=== PATIENT | male | born 1995 | race Caucasian/White ===

== ENCOUNTER 2020-09-06 09:43 | Emergency (ER) | payer SELFPAY ==
[2020-09-06 10:14] VITALS: BP 114/71; PULSE 97; RESP 18; TEMP 37.2; O2SAT 95; BMI 26.5
[2020-09-06 10:20] VITALS: BP 114/71; PULSE 94; RESP 18; O2SAT 95
--- NOTE | 2020-09-06 10:44 | W.ED.EYEPROB ---
HPI - Eye Problem General: Chief complaint: Eye Problems Stated complaint: EYE ISSUES Time Seen by Provider: 09/06/20 10:04 History of Present Illness: HPI Narrative: Patient has redness to left eye. Was seen in urgent care yesterday and put on ofloxacin drops for pinkeye. Patient's history is as he was weightlifting on felt pain in his eye he rubbed his eye pretty hard then developed redness to the eye. Stayed red to the inner part of the eye and then he vomited yesterday fairly hard and the eye started hurting worse became more red. And he presents today for evaluation. He has had no matting of the eye he has had some clear drainage from the eye. Upper eyelid is also become bruised. chief complaint: eye redness Onset (ago): day(s) (Started during weightlifting session) Onset description: sudden Duration: constant and progressively worsening Location: left eye Eye Symptoms: redness Place: other ([place]) Mechanism: other (Weight lifting) Severity: mild Associated symptoms: Reports no associated symptoms and vomiting (Vomited once yesterday, has changed supplement intake routine); Denies fever(s), headache(s) or nausea Treatments Prior to Arrival: other (Ofloxacin drops prescribed by urgent care) Review of Systems Narrative: No history of high blood pressure Const: Denies: fever(s), chills or body aches Eyes: Reports: eye redness and increased production of tears; Denies: change in vision or blurry vision (He is seeing okay now- the eye was blurry for a little while) ENMT: Denies: throat pain or nasal congestion Card: Denies: chest pain or dyspnea on exertion Resp: Denies: dyspnea, productive cough or non-productive cough GI: Reports: vomiting (Vomited once yesterday, has changed supplement intake routine); Denies: abdominal pain or nausea : Denies: difficulty urinating Musc: Denies: extremity pain Skin/Breast: Denies: rash Neuro: Denies: headache(s) Psych: Denies: anxiety or depression Reji/Lymph: Denies: easy bruising PFS ED PFSH: Social History (Updated 09/05/20 @ 10:05 by Mignon Smallwodo LPN) Smoking and tobacco status: never smoked Physical Exam Const: COMMON NORMALS: no acute distress Eye: COMMON NORMALS: Equal, round and reactive pupils present VISUAL ACUITY: Yes acuity normal VISUAL SANDS: No peripheral vision loss and No central vision loss SCLERA: scleral abnormal Laterality of scleral abnormality: positive left hemorrhage (All about the sclera) PUPIL: Yes Equal, round and reactive pupils present EOM: Yes EOM abnormal Psych: COMMON NORMALS: mental status grossly normal Course Vital Signs: Vital signs: Vital Signs Temperature 99.0 F 09/06/20 10:14 Pulse Rate 94 09/06/20 10:20 Respiratory Rate 18 09/06/20 10:20 Blood Pressure 114/71 09/06/20 10:20 Pulse Oximetry 95 09/06/20 10:20 MDM - Eye Problem MDM Narrative: Medical decision making narrative: Spoke with Dr. Hill in consultation went over patient's history and presenting symptoms Dr. Hill agrees with diagnosis and recommends plan have patient follow-up with him if no significant improvement. Discharge Plan Discharge Patient Disposition: Home Clinical Impression: Retinal flame hemorrhage of left eye Condition: Stable Prescriptions: New prednisolone acetate 1 % drops,suspension 1 drp ophthalmic (eye) BID 5 Days Qty: 5 RF: 0 Discontinued ofloxacin 0.3 % drops 2 drp ophthalmic (eye) BID 7 Days Qty: 5 RF: 0 Discharge Orders: Discharge ED (Routine); Ordered 09/06/20 Ordered By: Emmett Santa Discharge Diet: Usual diet Discharge Activity: Increase activity as tolerated Patient Instructions: Retinal Hemorrhage (ED) Activity Restrictions/Additional Instructions: Follow-up with medical provider as directed. Take medications as prescribed. Return to the ER or your medical provider if condition worsens. Please read and understand discharge instructions. If any questions ask please. Can play cold pack to eye as necessary next 24 hours then warm compresses for the next few days after that. Recommend no weight lifting for next few days. Coding Level of Care Code ED Grinding Room Inspector for Micheline Browne
[2020-09-06 10:55] VITALS: BP 114/71; PULSE 90; RESP 15; TEMP 37.2; O2SAT 96
== END 2020-09-06 10:59 | disposition home or self-care (01) ==
PROVIDERS: Emergency Provider Nurse Practitioner Family
DX: H35.62 Retinal hemorrhage, left eye (principal)
CPT/HCPCS: 99281

== ENCOUNTER 2021-10-05 12:43 | Outpatient (CLI) | payer SELFPAY | END 2021-10-05 12:44 | disposition home or self-care (01) | LOC: ONCMED 12:48 | PROVIDERS: Visit Provider Internal Medicine Medical Oncology | DX: Z53.20 Procedure and treatment not carried out because of patient's decision for unspecified reasons (principal) | CPT/HCPCS: 80053; 85025 ==

== ENCOUNTER 2021-10-13 06:00 | Oncology outpatient (recurring) (ONCR) | payer MEDICAID, SELFPAY ==
[2021-09-30 15:11] LABS: Basophils % 1.6 %; Eosinophils % 1.6 %; Hemoglobin 11.2 g/dL (11.7-16.6); Lymphocytes # 0.4 10^3/uL (0.8-4.8); Lymphocytes % 62.9 %; Mean Corpuscular Hemoglobin 29.5 pg (28.0-34.0); Mean Corpuscular Volume 92.1 fl (80-94); Monocytes % 4.8 %; Neutrophils % 29.1 %; Nucleated Red Blood Cells % 0 %; Red Cell Distribution Width 20.6 % (12.1-15.1)
[2021-09-30 15:31] LABS: Alanine Aminotransferase 21 U/L (0-41); Alkaline Phosphatase 238 IU/L (40-130); Anion Gap 14.2 (5-19); Aspartate Amino Transferase 17 U/L (0-40); Blood Urea Nitrogen 15 mg/dL (6-20); Calcium 9.4 mg/dL (8.5-10.5); Carbon Dioxide 26 mmol/L (22-29); Chloride 101 mmol/L (98-107); Globulin 2.8 g/dL (1.3-4.6); Glomerular Filtration Rate 160.4 mL/min (90-130); Glucose 99 mg/dL (65-115); Osmolality Calculated 285 mOsm/kg (285-295); Potassium 4.2 mmol/L (3.5-5.1); Sodium 137 mmol/L (136-145); Total Bilirubin 2.4 mg/dL (0.15-1.2); Total Protein 6.8 g/dL (6.6-8.7)
[2021-09-30 16:05] LABS: White Blood Count 0.6 10^3/uL (4.0-10.0)
[2021-09-30 16:06] LABS: Neutrophils # 0.18 10^3/uL (1.8-7.7); Platelet Count 26 10^3/cmm (130-400)
[2021-09-30 16:11] LABS: Slide Review Slide Review Perform
== END 2021-10-27 23:59 | disposition home or self-care (01) ==
PROVIDERS: Internal Medicine Hematology & Oncology; Visit Provider Internal Medicine Medical Oncology
DX: Z53.9 Procedure and treatment not carried out, unspecified reason (principal)
CPT/HCPCS: 80053; 85025

== ENCOUNTER 2021-10-27 08:00 | Oncology outpatient (recurring) (ONCR) | payer MEDICAID, SELFPAY ==
--- NOTE | 2021-09-30 15:08 | PC.NURSE ---
Peripheral lab draw to pts L AC. Area cleaned with alcohol x2. 21g needle used. Labs obtained as ordered. Pt has OV this afternoon with Dr. Urbano. - JASMYNE
[2021-10-02 10:18] LABS: Eosinophils % 1.2 %; Hematocrit 36.7 % (42.0-52.0); Hemoglobin 11.9 g/dL (11.7-16.6); Lymphocytes # 0.5 10^3/uL (0.8-4.8); Lymphocytes % 66.7 %; Mean Corpuscular HGB Conc 32.4 g/dL (30.0-36.0); Mean Corpuscular Hemoglobin 29.8 pg (28.0-34.0); Monocytes # 0.1 10^3/uL (0.2-0.9); Monocytes % 6.2 %; Neutrophils % 25.9 %; Nucleated Red Blood Cells % 2.5 %; Platelet Count 49 10^3/cmm (130-400); Red Blood Count 3.99 10^6/uL (4.1-5.3)
[2021-10-02 10:44] LABS: Alanine Aminotransferase 29 U/L (0-41); Albumin Level 3.9 g/dL (3.5-5.2); Alkaline Phosphatase 263 IU/L (40-130); Anion Gap 16.2 (5-19); Aspartate Amino Transferase 22 U/L (0-40); Blood Urea Nitrogen 18 mg/dL (6-20); Calcium 9.5 mg/dL (8.5-10.5); Carbon Dioxide 24 mmol/L (22-29); Chloride 98 mmol/L (98-107); Globulin 3.8 g/dL (1.3-4.6); Glomerular Filtration Rate 134.3 mL/min (90-130); Glucose 92 mg/dL (65-115); Osmolality Calculated 280 mOsm/kg (285-295); Potassium 4.2 mmol/L (3.5-5.1); Sodium 134 mmol/L (136-145); Total Bilirubin 1.4 mg/dL (0.15-1.2); Total Protein 7.7 g/dL (6.6-8.7)
[2021-10-02 11:06] LABS: Slide Review Slide Review Perform
[2021-10-02 11:08] LABS: Neutrophils # 0.21 10^3/uL (1.8-7.7); White Blood Count 0.8 10^3/uL (4.0-10.0)
[2021-10-05 13:17] LABS: Basophils % 0.8 %; Eosinophils % 1.5 %; Hematocrit 34.6 % (42.0-52.0); Hemoglobin 11.4 g/dL (11.7-16.6); Lymphocytes # 0.9 10^3/uL (0.8-4.8); Lymphocytes % 68.5 %; Mean Corpuscular HGB Conc 32.9 g/dL (30.0-36.0); Mean Corpuscular Hemoglobin 30.2 pg (28.0-34.0); Mean Corpuscular Volume 91.8 fl (80-94); Mean Platelet Volume 10.7 fL (7.4-10.4); Monocytes % 3.1 %; Neutrophils % 26.1 %; Nucleated Red Blood Cells % 1.5 %; Platelet Count 100 10^3/cmm (130-400); Red Blood Count 3.77 10^6/uL (4.1-5.3); Red Cell Distribution Width 19.9 % (12.1-15.1); White Blood Count 1.3 10^3/uL (4.0-10.0)
[2021-10-05 13:29] LABS: Neutrophils # 0.34 10^3/uL (1.8-7.7)
[2021-10-05 13:32] LABS: Alanine Aminotransferase 32 U/L (0-41); Albumin Level 3.9 g/dL (3.5-5.2); Alkaline Phosphatase 200 IU/L (40-130); Anion Gap 12.5 (5-19); Aspartate Amino Transferase 23 U/L (0-40); Blood Urea Nitrogen 20 mg/dL (6-20); Calcium 9.4 mg/dL (8.5-10.5); Carbon Dioxide 27 mmol/L (22-29); Chloride 100 mmol/L (98-107); Globulin 3.6 g/dL (1.3-4.6); Glomerular Filtration Rate 100.5 mL/min (90-130); Glucose 84 mg/dL (65-115); Osmolality Calculated 282 mOsm/kg (285-295); Potassium 4.5 mmol/L (3.5-5.1); Sodium 135 mmol/L (136-145); Total Bilirubin 1.1 mg/dL (0.15-1.2); Total Protein 7.5 g/dL (6.6-8.7)
[2021-10-13] VITALS (10 sets, daily range): BP systolic 113–144; BP diastolic 56–89; PULSE 75–101; RESP 16; TEMP 36.1–36.9; O2SAT 97–99
[2021-10-13 08:22] LABS: Basophils % 0.6 %; Eosinophils % 1.3 %; Hematocrit 31.6 % (42.0-52.0); Hemoglobin 9.9 g/dL (11.7-16.6); Lymphocytes # 0.9 10^3/uL (0.8-4.8); Lymphocytes % 54.1 %; Mean Corpuscular HGB Conc 31.3 g/dL (30.0-36.0); Mean Corpuscular Hemoglobin 30.2 pg (28.0-34.0); Mean Corpuscular Volume 96.3 fl (80-94); Mean Platelet Volume 10.9 fL (7.4-10.4); Monocytes # 0.2 10^3/uL (0.2-0.9); Monocytes % 12.6 %; Neutrophils % 30.1 %; Nucleated Red Blood Cells % 1.9 %; Platelet Count 211 10^3/cmm (130-400); Red Blood Count 3.28 10^6/uL (4.1-5.3); Red Cell Distribution Width 20.6 % (12.1-15.1); White Blood Count 1.6 10^3/uL (4.0-10.0)
[2021-10-13 08:45] LABS: Neutrophils # 0.48 10^3/uL (1.8-7.7)
[2021-10-13 08:46] LABS: Alanine Aminotransferase 29 U/L (0-41); Albumin Level 4.2 g/dL (3.5-5.2); Alkaline Phosphatase 121 IU/L (40-130); Anion Gap 12.8 (5-19); Aspartate Amino Transferase 16 U/L (0-40); Blood Urea Nitrogen 11 mg/dL (6-20); Calcium 8.5 mg/dL (8.5-10.5); Carbon Dioxide 26 mmol/L (22-29); Chloride 102 mmol/L (98-107); Globulin 2.7 g/dL (1.3-4.6); Glomerular Filtration Rate 134.3 mL/min (90-130); Glucose 120 mg/dL (65-115); Osmolality Calculated 285 mOsm/kg (285-295); Potassium 3.8 mmol/L (3.5-5.1); Sodium 137 mmol/L (136-145); Total Bilirubin 0.4 mg/dL (0.15-1.2); Total Protein 6.9 g/dL (6.6-8.7)
[2021-10-13] MEDS: acetaminophen 325 mg Tablet 650 MG PO (09:06)
[2021-10-13] MEDS: sodium chloride 0.9% 250 ML 75 ML IV (09:06)
[2021-10-13] MEDS: diphenhydrAMINE 50 mg/mL SDV 1mL 25 MG IVP (09:07)
[2021-10-13] MEDS: rituximab-abbs 500 MG, rituximab-abbs 240 MG in sodium chloride 0.9% 500 ML 38.9 MG IV (09:47)
[2021-10-20] VITALS (7 sets, daily range): BP systolic 115–129; BP diastolic 56–77; PULSE 72–89; RESP 16–18; TEMP 36.4–36.8; O2SAT 97–99; BMI 22.6
[2021-10-20] MEDS: acetaminophen 325 mg Tablet 650 MG PO (08:48)
[2021-10-20] MEDS: sodium chloride 0.9% 250 ML 75 ML IV (08:49)
[2021-10-20] MEDS: diphenhydrAMINE 50 mg/mL SDV 1mL 25 MG IVP (08:57)
[2021-10-20] MEDS: rituximab-abbs 500 MG, rituximab-abbs 240 MG in sodium chloride 0.9% 500 ML 191.33 MG IV (09:24)
[2021-10-27 08:35] LABS: Basophils % 1.1 %; Eosinophils % 0.8 %; Hematocrit 35.8 % (42.0-52.0); Hemoglobin 11.4 g/dL (11.7-16.6); Lymphocytes # 0.6 10^3/uL (0.8-4.8); Lymphocytes % 16.8 %; Mean Corpuscular HGB Conc 31.8 g/dL (30.0-36.0); Mean Corpuscular Hemoglobin 31.8 pg (28.0-34.0); Mean Corpuscular Volume 99.7 fl (80-94); Mean Platelet Volume 9.6 fL (7.4-10.4); Monocytes # 0.4 10^3/uL (0.2-0.9); Monocytes % 11.4 %; Neutrophils # 2.52 10^3/uL (1.8-7.7); Neutrophils % 68.5 %; Nucleated Red Blood Cells % 0 %; Platelet Count 219 10^3/cmm (130-400); Red Blood Count 3.59 10^6/uL (4.1-5.3); White Blood Count 3.7 10^3/uL (4.0-10.0)
[2021-10-27 09:07] LABS: Alanine Aminotransferase 37 U/L (0-41); Albumin Level 4.3 g/dL (3.5-5.2); Alkaline Phosphatase 85 IU/L (40-130); Aspartate Amino Transferase 27 U/L (0-40); Blood Urea Nitrogen 12 mg/dL (6-20); Calcium 9.1 mg/dL (8.5-10.5); Carbon Dioxide 26 mmol/L (22-29); Chloride 102 mmol/L (98-107); Globulin 2.7 g/dL (1.3-4.6); Glomerular Filtration Rate 134.3 mL/min (90-130); Glucose 112 mg/dL (65-115); Osmolality Calculated 287 mOsm/kg (285-295); Sodium 138 mmol/L (136-145); Total Bilirubin 0.3 mg/dL (0.15-1.2)
[2021-10-27 09:08] LABS: Anion Gap 14.4 (5-19); Potassium 4.4 mmol/L (3.5-5.1)
[2021-10-27] MEDS: acetaminophen 325 mg Tablet 650 MG PO (09:29)
[2021-10-27] MEDS: sodium chloride 0.9% 250 ML 100 ML IV (09:29)
[2021-10-27] MEDS: diphenhydrAMINE 50 mg/mL SDV 1mL 25 MG IVP (09:32)
[2021-10-27 09:35] VITALS: BP 112/59; PULSE 75; RESP 16; TEMP 36.7; O2SAT 97; BMI 23.1
[2021-10-27] MEDS: rituximab-abbs 500 MG, rituximab-abbs 240 MG in sodium chloride 0.9% 500 ML 191.33 MG IV (09:55)
[2021-10-27 10:30] VITALS: BP 99/53; PULSE 65; RESP 16
[2021-10-27 11:00] VITALS: BP 109/53; PULSE 67; RESP 16
[2021-10-27 11:30] VITALS: BP 111/65; PULSE 75; RESP 16
[2021-10-27 12:40] VITALS: BP 110/63; PULSE 73; RESP 16; TEMP 36.8; O2SAT 97
== END 2021-10-27 23:59 | disposition home or self-care (01) ==
PROVIDERS: Internal Medicine Hematology & Oncology; Visit Provider Internal Medicine Medical Oncology
DX: Z51.12 Encounter for antineoplastic immunotherapy (principal); C91.40 Hairy cell leukemia not having achieved remission; C77.8 Secondary and unspecified malignant neoplasm of lymph nodes of multiple regions; C79.52 Secondary malignant neoplasm of bone marrow; R16.1 Splenomegaly, not elsewhere classified; D70.1 Agranulocytosis secondary to cancer chemotherapy; T45.1X5A Adverse effect of antineoplastic and immunosuppressive drugs, initial encounter; Z79.899 Other long term (current) drug therapy
CPT/HCPCS: 80053; 85025; 96372; 96375; 96413; 96415; 99215; J1200; J2930; J7040; J7050; Q5115

== ENCOUNTER 2021-11-25 08:54 | Oncology outpatient (recurring) (ONCR) | payer MEDICAID, SELFPAY ==
[2021-11-02 09:29] LABS: Eosinophils # 0.1 10^3/uL (0.0-0.8); Eosinophils % 1.3 %; Hemoglobin 11.9 g/dL (11.7-16.6); Lymphocytes # 0.6 10^3/uL (0.8-4.8); Lymphocytes % 16.5 %; Mean Corpuscular HGB Conc 31.3 g/dL (30.0-36.0); Mean Corpuscular Hemoglobin 31.4 pg (28.0-34.0); Mean Corpuscular Volume 100.3 fl (80-94); Mean Platelet Volume 9.6 fL (7.4-10.4); Monocytes # 0.5 10^3/uL (0.2-0.9); Monocytes % 11.6 %; Neutrophils # 2.69 10^3/uL (1.8-7.7); Neutrophils % 69.1 %; Nucleated Red Blood Cells % 0 %; Platelet Count 222 10^3/cmm (130-400); Red Blood Count 3.79 10^6/uL (4.1-5.3); Red Cell Distribution Width 21.2 % (12.1-15.1); White Blood Count 3.9 10^3/uL (4.0-10.0)
[2021-11-02 09:47] LABS: Alanine Aminotransferase 41 U/L (0-41); Albumin Level 4.4 g/dL (3.5-5.2); Alkaline Phosphatase 78 IU/L (40-130); Anion Gap 14.3 (5-19); Aspartate Amino Transferase 21 U/L (0-40); Blood Urea Nitrogen 12 mg/dL (6-20); Carbon Dioxide 24 mmol/L (22-29); Chloride 102 mmol/L (98-107); Globulin 2.5 g/dL (1.3-4.6); Glomerular Filtration Rate 160.4 mL/min (90-130); Glucose 109 mg/dL (65-115); Osmolality Calculated 282 mOsm/kg (285-295); Potassium 4.3 mmol/L (3.5-5.1); Sodium 136 mmol/L (136-145); Total Bilirubin 0.5 mg/dL (0.15-1.2); Total Protein 6.9 g/dL (6.6-8.7)
[2021-11-09 09:35] LABS: Basophils # 0.1 10^3/uL (0.0-0.1); Eosinophils # 0.2 10^3/uL (0.0-0.8); Eosinophils % 3.8 %; Hematocrit 37.4 % (42.0-52.0); Hemoglobin 12.3 g/dL (11.7-16.6); Lymphocytes # 0.8 10^3/uL (0.8-4.8); Lymphocytes % 16.3 %; Mean Corpuscular HGB Conc 32.9 g/dL (30.0-36.0); Mean Corpuscular Hemoglobin 31.5 pg (28.0-34.0); Mean Corpuscular Volume 95.7 fl (80-94); Mean Platelet Volume 10.7 fL (7.4-10.4); Monocytes # 0.6 10^3/uL (0.2-0.9); Neutrophils # 3.35 10^3/uL (1.8-7.7); Neutrophils % 66.7 %; Nucleated Red Blood Cells % 0 %; Platelet Count 208 10^3/cmm (130-400); Red Blood Count 3.91 10^6/uL (4.1-5.3); Red Cell Distribution Width 19.6 % (12.1-15.1)
[2021-11-09 09:54] LABS: Alanine Aminotransferase 26 U/L (0-41); Albumin Level 4.4 g/dL (3.5-5.2); Alkaline Phosphatase 77 IU/L (40-130); Anion Gap 16.3 (5-19); Aspartate Amino Transferase 17 U/L (0-40); Blood Urea Nitrogen 14 mg/dL (6-20); Calcium 9.2 mg/dL (8.5-10.5); Carbon Dioxide 20 mmol/L (22-29); Chloride 105 mmol/L (98-107); Globulin 2.6 g/dL (1.3-4.6); Glomerular Filtration Rate 134.3 mL/min (90-130); Glucose 107 mg/dL (65-115); Osmolality Calculated 285 mOsm/kg (285-295); Potassium 4.3 mmol/L (3.5-5.1); Sodium 137 mmol/L (136-145); Total Bilirubin 0.4 mg/dL (0.15-1.2)
[2021-11-16 09:31] LABS: Basophils % 0.7 %; Eosinophils # 0.2 10^3/uL (0.0-0.8); Eosinophils % 3.7 %; Hematocrit 37.6 % (42.0-52.0); Hemoglobin 12.4 g/dL (11.7-16.6); Lymphocytes # 0.8 10^3/uL (0.8-4.8); Lymphocytes % 14.6 %; Mean Corpuscular Hemoglobin 31.6 pg (28.0-34.0); Mean Corpuscular Volume 95.9 fl (80-94); Mean Platelet Volume 10.8 fL (7.4-10.4); Monocytes # 0.6 10^3/uL (0.2-0.9); Monocytes % 10.7 %; Neutrophils # 3.78 10^3/uL (1.8-7.7); Neutrophils % 70.1 %; Nucleated Red Blood Cells % 0 %; Platelet Count 204 10^3/cmm (130-400); Red Blood Count 3.92 10^6/uL (4.1-5.3); Red Cell Distribution Width 17.9 % (12.1-15.1); White Blood Count 5.4 10^3/uL (4.0-10.0)
[2021-11-16 09:46] LABS: Alanine Aminotransferase 21 U/L (0-41); Albumin Level 4.4 g/dL (3.5-5.2); Alkaline Phosphatase 80 IU/L (40-130); Anion Gap 14.3 (5-19); Aspartate Amino Transferase 15 U/L (0-40); Blood Urea Nitrogen 23 mg/dL (6-20); Calcium 8.9 mg/dL (8.5-10.5); Carbon Dioxide 24 mmol/L (22-29); Chloride 103 mmol/L (98-107); Globulin 2.6 g/dL (1.3-4.6); Glomerular Filtration Rate 115.1 mL/min (90-130); Glucose 115 mg/dL (65-115); Osmolality Calculated 289 mOsm/kg (285-295); Potassium 4.3 mmol/L (3.5-5.1); Sodium 137 mmol/L (136-145); Total Bilirubin 0.4 mg/dL (0.15-1.2)
[2021-11-23 09:40] LABS: Basophils % 0.5 %; Eosinophils # 0.1 10^3/uL (0.0-0.8); Hematocrit 39.7 % (42.0-52.0); Hemoglobin 13.3 g/dL (11.7-16.6); Lymphocytes # 0.5 10^3/uL (0.8-4.8); Lymphocytes % 12.1 %; Mean Corpuscular HGB Conc 33.5 g/dL (30.0-36.0); Mean Corpuscular Volume 95.4 fl (80-94); Mean Platelet Volume 10.1 fL (7.4-10.4); Monocytes # 0.6 10^3/uL (0.2-0.9); Monocytes % 12.8 %; Neutrophils # 3.08 10^3/uL (1.8-7.7); Neutrophils % 71.4 %; Nucleated Red Blood Cells % 0 %; Platelet Count 150 10^3/cmm (130-400); Red Blood Count 4.16 10^6/uL (4.1-5.3); Red Cell Distribution Width 17.2 % (12.1-15.1); White Blood Count 4.3 10^3/uL (4.0-10.0)
[2021-11-23 09:57] LABS: Alanine Aminotransferase 24 U/L (0-41); Albumin Level 4.6 g/dL (3.5-5.2); Alkaline Phosphatase 56 IU/L (40-130); Anion Gap 13.4 (5-19); Aspartate Amino Transferase 18 U/L (0-40); Blood Urea Nitrogen 14 mg/dL (6-20); Calcium 9.1 mg/dL (8.5-10.5); Carbon Dioxide 26 mmol/L (22-29); Chloride 102 mmol/L (98-107); Globulin 2.7 g/dL (1.3-4.6); Glomerular Filtration Rate 134.3 mL/min (90-130); Glucose 112 mg/dL (65-115); Lactate Dehydrogenase 101 U/L (135-225); Osmolality Calculated 285 mOsm/kg (285-295); Potassium 4.4 mmol/L (3.5-5.1); Sodium 137 mmol/L (136-145); Total Bilirubin 0.6 mg/dL (0.15-1.2); Total Protein 7.3 g/dL (6.6-8.7)
== END 2021-11-26 23:59 | disposition home or self-care (01) ==
PROVIDERS: Internal Medicine Hematology & Oncology; Visit Provider Internal Medicine Medical Oncology
DX: C91.41 Hairy cell leukemia, in remission (principal); R16.2 Hepatomegaly with splenomegaly, not elsewhere classified; D64.9 Anemia, unspecified; Z79.899 Other long term (current) drug therapy; Z92.25 Personal history of immunosuppression therapy
CPT/HCPCS: 36415; 80053; 83615; 85025; G0463

== ENCOUNTER 2022-02-25 10:44 | Oncology outpatient (recurring) (ONCR) | payer MEDICAID, SELFPAY ==
[2022-02-25 11:37] LABS: Basophils # 0.1 10^3/uL (0.0-0.1); Basophils % 0.9 %; Eosinophils # 0.3 10^3/uL (0.0-0.8); Hemoglobin 15.3 g/dL (11.7-16.6); Lymphocytes # 0.7 10^3/uL (0.8-4.8); Lymphocytes % 13.3 %; Mean Corpuscular HGB Conc 32.6 g/dL (30.0-36.0); Mean Corpuscular Hemoglobin 29.9 pg (28.0-34.0); Mean Platelet Volume 11.4 fL (7.4-10.4); Monocytes # 0.5 10^3/uL (0.2-0.9); Monocytes % 9.8 %; Neutrophils # 3.84 10^3/uL (1.8-7.7); Neutrophils % 69.8 %; Nucleated Red Blood Cells % 0 %; Platelet Count 250 10^3/cmm (130-400); Red Blood Count 5.11 10^6/uL (4.1-5.3); Red Cell Distribution Width 13.5 % (12.1-15.1); White Blood Count 5.5 10^3/uL (4.0-10.0)
[2022-02-25 11:52] LABS: Alanine Aminotransferase 122 U/L (0-41); Albumin Level 4.5 g/dL (3.5-5.2); Alkaline Phosphatase 80 U/L (40-130); Anion Gap 15.4 (5-19); Aspartate Amino Transferase 83 U/L (0-40); Blood Urea Nitrogen 32 mg/dL (6-20); Calcium 9.9 mg/dL (8.5-10.5); Carbon Dioxide 28 mmol/L (22-29); Chloride 102 mmol/L (98-107); Glucose 90 mg/dL (65-115); Lactate Dehydrogenase 402 U/L (135-225); Osmolality Calculated 296 mOsm/kg (285-295); Potassium 5.4 mmol/L (3.5-5.1); Sodium 140 mmol/L (136-145); Total Bilirubin 0.5 mg/dL (0.15-1.2); Total Protein 7.5 g/dL (6.6-8.7)
== END 2022-02-26 23:59 | disposition home or self-care (01) ==
PROVIDERS: Visit Provider Internal Medicine Medical Oncology
DX: C91.40 Hairy cell leukemia not having achieved remission (principal)
CPT/HCPCS: 36415; 80053; 83615; 85025

== ENCOUNTER 2022-03-04 10:07 | Oncology outpatient (recurring) (ONCR) | payer MEDICAID, SELFPAY ==
[2022-03-04 10:48] LABS: Alanine Aminotransferase 60 U/L (0-41); Albumin Level 5.1 g/dL (3.5-5.2); Alkaline Phosphatase 71 U/L (40-130); Anion Gap 14.3 (5-19); Aspartate Amino Transferase 33 U/L (0-40); Blood Urea Nitrogen 28 mg/dL (6-20); Carbon Dioxide 26 mmol/L (22-29); Chloride 98 mmol/L (98-107); Globulin 2.6 g/dL (1.3-4.6); Glomerular Filtration Rate 100.5 mL/min (90-130); Glucose 99 mg/dL (65-115); Osmolality Calculated 284 mOsm/kg (285-295); Potassium 4.3 mmol/L (3.5-5.1); Sodium 134 mmol/L (136-145); Total Bilirubin 0.5 mg/dL (0.15-1.2); Total Protein 7.7 g/dL (6.6-8.7)
[2022-03-04 11:17] LABS: Hepatitis A Antibody IgM Non-Reactive (Nonreactive); Hepatitis B Core AB, Total Non-Reactive (Nonreactive); Hepatitis B Surface Antigen Non-Reactive (Nonreactive); Hepatitis C Virus Antibody Non-Reactive (Nonreactive)
[2022-03-04 11:21] LABS: Hepatitis B Surface AB < 3.5 (11.5-1000)
== END 2022-03-29 23:59 | disposition home or self-care (01) ==
LOC: ONCMED 10:07
PROVIDERS: Visit Provider Internal Medicine Medical Oncology
DX: C91.40 Hairy cell leukemia not having achieved remission (principal)
CPT/HCPCS: 36415; 80053; 86705; 86706; 86709; 86803; 87340

== ENCOUNTER 2022-06-03 13:14 | Oncology outpatient (recurring) (ONCR) | payer MEDICAID, SELFPAY ==
[2022-06-03 13:50] LABS: Basophils # 0.1 10^3/uL (0.0-0.1); Basophils % 0.9 %; Eosinophils # 0.3 10^3/uL (0.0-0.8); Eosinophils % 3.8 %; Hematocrit 52.3 % (42.0-52.0); Hemoglobin 16.8 g/dL (11.7-16.6); Lymphocytes # 1.1 10^3/uL (0.8-4.8); Lymphocytes % 15.3 %; Mean Corpuscular HGB Conc 32.1 g/dL (30.0-36.0); Mean Corpuscular Hemoglobin 29.3 pg (28.0-34.0); Mean Corpuscular Volume 91.3 fl (80-94); Mean Platelet Volume 11.1 fL (7.4-10.4); Monocytes # 0.8 10^3/uL (0.2-0.9); Monocytes % 10.9 %; Neutrophils # 4.75 10^3/uL (1.8-7.7); Nucleated Red Blood Cells % 0 %; Platelet Count 265 10^3/cmm (130-400); Red Blood Count 5.73 10^6/uL (4.1-5.3); Red Cell Distribution Width 13.1 % (12.1-15.1); White Blood Count 6.9 10^3/uL (4.0-10.0)
[2022-06-03 14:23] LABS: Alanine Aminotransferase 37 U/L (0-41); Albumin Level 5.1 g/dL (3.5-5.2); Alkaline Phosphatase 101 U/L (40-130); Anion Gap 15.2 (5-19); Aspartate Amino Transferase 32 U/L (0-40); Blood Urea Nitrogen 26 mg/dL (6-20); Calcium 9.4 mg/dL (8.5-10.5); Carbon Dioxide 28 mmol/L (22-29); Chloride 97 mmol/L (98-107); Glomerular Filtration Rate 115.1 mL/min (90-130); Glucose 89 mg/dL (65-115); Osmolality Calculated 286 mOsm/kg (285-295); Potassium 4.2 mmol/L (3.5-5.1); Sodium 136 mmol/L (136-145); Total Bilirubin 0.4 mg/dL (0.15-1.2); Total Protein 8.1 g/dL (6.6-8.7)
[2022-06-03 14:33] LABS: Lactate Dehydrogenase 168 U/L (135-225)
== END 2022-06-29 23:59 | disposition home or self-care (01) ==
PROVIDERS: Visit Provider Internal Medicine Medical Oncology
DX: C91.40 Hairy cell leukemia not having achieved remission (principal)
CPT/HCPCS: 36415; 80053; 83615; 85025

== ENCOUNTER 2022-12-02 11:17 | Oncology outpatient (recurring) (ONCR) | payer MEDICAID, SELFPAY ==
[2022-12-02 11:28] VITALS: BP 117/74; PULSE 71; RESP 18; TEMP 36.8; O2SAT 98
[2022-12-02 11:43] LABS: Basophils % 0.6 %; Eosinophils # 0.2 10^3/uL (0.0-0.8); Eosinophils % 2.3 %; Hematocrit 45.4 % (42.0-52.0); Hemoglobin 14.8 g/dL (11.7-16.6); Lymphocytes # 1.1 10^3/uL (0.8-4.8); Lymphocytes % 16.3 %; Mean Corpuscular HGB Conc 32.6 g/dL (30.0-36.0); Mean Corpuscular Hemoglobin 29.7 pg (28.0-34.0); Mean Platelet Volume 10.2 fL (7.4-10.4); Monocytes # 0.5 10^3/uL (0.2-0.9); Monocytes % 7.3 %; Neutrophils # 5.05 10^3/uL (1.8-7.7); Neutrophils % 73.2 %; Nucleated Red Blood Cells % 0 %; Platelet Count 245 10^3/cmm (130-400); Red Blood Count 4.99 10^6/uL (4.1-5.3); Red Cell Distribution Width 13.4 % (12.1-15.1); White Blood Count 6.9 10^3/uL (4.0-10.0)
[2022-12-02 12:00] LABS: Alanine Aminotransferase 43 U/L (0-41); Albumin Level 4.5 g/dL (3.5-5.2); Alkaline Phosphatase 77 U/L (40-130); Anion Gap 15.7 (5-19); Aspartate Amino Transferase 38 U/L (0-40); Blood Urea Nitrogen 24 mg/dL (6-20); Carbon Dioxide 26 mmol/L (22-29); Chloride 102 mmol/L (98-107); Globulin 2.9 g/dL (1.3-4.6); Glomerular Filtration Rate 88.3 mL/min (90-130); Glucose 99 mg/dL (65-115); Lactate Dehydrogenase 141 U/L (135-225); Osmolality Calculated 292 mOsm/kg (285-295); Potassium 4.7 mmol/L (3.5-5.1); Sodium 139 mmol/L (136-145); Total Bilirubin 0.3 mg/dL (0.15-1.2); Total Protein 7.4 g/dL (6.6-8.7)
== END 2022-12-27 23:59 | disposition home or self-care (01) ==
PROVIDERS: Visit Provider Internal Medicine Medical Oncology
DX: C91.40 Hairy cell leukemia not having achieved remission (principal)
CPT/HCPCS: 36415; 80053; 83615; 85025

== ENCOUNTER 2023-03-22 15:05 | Oncology outpatient (recurring) (ONCR) | payer MEDICAID, SELFPAY ==
[2023-03-22 15:34] VITALS: BP 129/69; PULSE 77; O2SAT 96
[2023-03-22 15:37] LABS: Basophils # 0.1 10^3/uL (0.0-0.1); Basophils % 0.7 %; Eosinophils # 0.2 10^3/uL (0.0-0.8); Eosinophils % 3.3 %; Hematocrit 48.1 % (37-53); Lymphocytes # 1.4 10^3/uL (0.8-4.8); Mean Corpuscular HGB Conc 32.6 g/dL (30-55); Mean Corpuscular Hemoglobin 29.5 pg (27-33); Mean Corpuscular Volume 90.4 fl (82-101); Monocytes # 0.6 10^3/uL (0.2-0.9); Monocytes % 7.8 %; Neutrophils # 4.97 10^3/uL (1.8-7.7); Neutrophils % 68.9 %; Nucleated Red Blood Cells % 0 %; Platelet Count 256 10^3/cmm (157-399); Red Blood Count 5.32 10^6/uL (3.85-5.65); Red Cell Distribution Width 12.8 % (12.1-15.1); White Blood Count 7.21 10^3/uL (3.29-11.43)
[2023-03-22 15:42] LABS: Erythrocyte Sedimentation Rate 6 mm/hr (0-10)
[2023-03-22 16:01] LABS: Alanine Aminotransferase 34 U/L (0-41); Albumin Level 4.8 g/dL (3.5-5.2); Alkaline Phosphatase 81 U/L (40-130); Anion Gap 13.3 (5-19); Aspartate Amino Transferase 30 U/L (0-40); Blood Urea Nitrogen 24 mg/dL (6-20); Calcium 9.6 mg/dL (8.5-10.5); Carbon Dioxide 27 mmol/L (22-29); Chloride 101 mmol/L (98-107); Globulin 2.5 g/dL (1.3-4.6); Glomerular Filtration Rate 79.1 mL/min (90-130); Glucose 101 mg/dL (65-115); Lactate Dehydrogenase 122 U/L (135-225); Osmolality Calculated 288 mOsm/kg (285-295); Potassium 4.3 mmol/L (3.5-5.1); Sodium 137 mmol/L (136-145); Total Bilirubin 0.5 mg/dL (0.15-1.2); Total Protein 7.3 g/dL (6.6-8.7)
== END 2023-03-29 23:59 | disposition home or self-care (01) ==
LOC: ONCMED 15:06
PROVIDERS: Visit Provider Internal Medicine Medical Oncology
DX: C91.40 Hairy cell leukemia not having achieved remission (principal)
CPT/HCPCS: 36415; 80053; 83615; 85025; 85651; 86140

== ENCOUNTER 2023-06-07 12:23 | Oncology outpatient (recurring) (ONCR) | payer MEDICAID, SELFPAY ==
[2023-06-07 12:50] VITALS: BP 147/76; PULSE 82; RESP 16; TEMP 37.1; O2SAT 99
[2023-06-07 12:57] LABS: Basophils % 0.7 %; Eosinophils # 0.3 10^3/uL (0.0-0.8); Eosinophils % 4.3 %; Hematocrit 47.1 % (37-53); Lymphocytes # 1.3 10^3/uL (0.8-4.8); Lymphocytes % 21.6 %; Mean Corpuscular HGB Conc 33.1 g/dL (30-55); Mean Corpuscular Hemoglobin 30.1 pg (27-33); Mean Corpuscular Volume 90.8 fl (82-101); Mean Platelet Volume 10.1 fL (7.4-10.4); Monocytes # 0.5 10^3/uL (0.2-0.9); Monocytes % 8.5 %; Neutrophils % 64.6 %; Nucleated Red Blood Cells % 0 %; Platelet Count 237 10^3/cmm (157-399); Red Blood Count 5.19 10^6/uL (3.85-5.65); Red Cell Distribution Width 13.1 % (12.1-15.1); White Blood Count 6.03 10^3/uL (3.29-11.43)
[2023-06-07 13:12] LABS: Alanine Aminotransferase 30 U/L (0-41); Albumin Level 4.6 g/dL (3.5-5.2); Alkaline Phosphatase 81 U/L (40-130); Anion Gap 12.3 (5-19); Aspartate Amino Transferase 23 U/L (0-40); Blood Urea Nitrogen 22 mg/dL (6-20); Calcium 9.6 mg/dL (8.5-10.5); Carbon Dioxide 29 mmol/L (22-29); Chloride 102 mmol/L (98-107); Globulin 2.9 g/dL (1.3-4.6); Glomerular Filtration Rate 65.3 mL/min (90-130); Glucose 81 mg/dL (65-115); Lactate Dehydrogenase 113 U/L (135-225); Osmolality Calculated 290 mOsm/kg (285-295); Potassium 4.3 mmol/L (3.5-5.1); Sodium 139 mmol/L (136-145); Total Bilirubin 0.5 mg/dL (0.15-1.2); Total Protein 7.5 g/dL (6.6-8.7)
== END 2023-06-29 23:59 | disposition home or self-care (01) ==
PROVIDERS: Visit Provider Internal Medicine Medical Oncology
DX: C91.40 Hairy cell leukemia not having achieved remission (principal)
CPT/HCPCS: 36415; 80053; 83615; 85025

== ENCOUNTER 2023-12-09 08:32 | Oncology outpatient (recurring) (ONCR) | payer MEDICAID, SELFPAY ==
[2023-12-09 09:01] LABS: Basophils # 0.1 10^3/uL (0.0-0.1); Basophils % 0.9 %; Eosinophils # 0.2 10^3/uL (0.0-0.8); Hematocrit 45.5 % (37-53); Lymphocytes # 1.4 10^3/uL (0.8-4.8); Lymphocytes % 26.1 %; Mean Corpuscular HGB Conc 33.2 g/dL (30-55); Mean Corpuscular Hemoglobin 30.4 pg (27-33); Mean Corpuscular Volume 91.7 fl (82-101); Mean Platelet Volume 10.6 fL (7.4-10.4); Monocytes # 0.5 10^3/uL (0.2-0.9); Monocytes % 8.8 %; Neutrophils # 3.27 10^3/uL (1.8-7.7); Nucleated Red Blood Cells % 0 %; Platelet Count 239 10^3/cmm (157-399); Red Blood Count 4.96 10^6/uL (3.85-5.65); Red Cell Distribution Width 13.2 % (12.1-15.1); White Blood Count 5.36 10^3/uL (3.29-11.43)
[2023-12-09 09:12] LABS: Alanine Aminotransferase 36 U/L (0-41); Albumin Level 4.7 g/dL (3.5-5.2); Alkaline Phosphatase 98 U/L (40-130); Aspartate Amino Transferase 26 U/L (0-40); Blood Urea Nitrogen 30 mg/dL (6-20); Calcium 9.3 mg/dL (8.5-10.5); Carbon Dioxide 25 mmol/L (22-29); Chloride 103 mmol/L (98-107); Globulin 2.5 g/dL (1.3-4.6); Glomerular Filtration Rate 78.6 mL/min (90-130); Glucose 91 mg/dL (65-115); Lactate Dehydrogenase 115 U/L (135-225); Osmolality Calculated 292 mOsm/kg (285-295); Sodium 138 mmol/L (136-145); Total Bilirubin 0.6 mg/dL (0.15-1.2); Total Protein 7.2 g/dL (6.6-8.7)
== END 2023-12-28 23:59 | disposition home or self-care (01) ==
PROVIDERS: Internal Medicine; Visit Provider Internal Medicine Medical Oncology
DX: C91.40 Hairy cell leukemia not having achieved remission (principal)
CPT/HCPCS: 36415; 80053; 83615; 85025

== ENCOUNTER 2024-06-09 14:09 | Emergency (ER) | payer MEDICAID, SELFPAY ==
[2024-06-09 14:15] VITALS: BP 125/85; PULSE 93; RESP 16; TEMP 36.4; O2SAT 97; BMI 25.4
--- NOTE | 2024-06-09 15:09 | ED_ITS ---
HPI - Nausea/Vomiting/Diarrhea 2 General: Chief complaint: Nausea/Vomiting/Diarrhea Stated complaint: vomiting /adm. pain Time Seen by Provider: 06/09/24 14:56 Source: patient Mode of arrival: ambulatory Limitations: no limitations History of Present Illness: 28-year-old male states that he woke up this morning having nausea vomiting states he also has had diarrhea. He states had multiple episodes of vomiting roughly 10-12 states he feels like he has food poisoning or gastroenteritis. States has not been able to tolerate any p.o. has had some abdominal cramping denies any severe abdominal pain. Associated nausea: Yes Associated symtoms: Reports nausea; Denies chest pain, dysuria or headache(s) Related Data Home Medications Medication Instructions Recorded Confirmed Morophogen Nutrition Fish Oil PO DAILY 06/07/23 05/01/24 cholecalciferol (vitamin D3) 125 125 mcg PO DAILY 06/07/23 05/01/24 mcg (5,000 unit) capsule glucosamine 500 mg-msm 100 mg-vit cap PO DAILY 06/07/23 05/01/24 C 20 qh-szeuf-gtct-primrose capsule (Joint Support Complex) multivitamin 1 tab PO DAILY 06/07/23 05/01/24 Previous Rx's Medication Instructions Recorded albuterol sulfate 90 mcg/actuation 2 puff inhalation Q4H PRN 05/01/24 aerosol inhaler shortness of breath or wheezing #6.7 grams cetirizine 10 mg tablet (Zyrtec) 10 mg PO DAILY 14 days #14 tabs 05/01/24 fluticasone propionate 50 2 spray intranasal DAILY 14 days 05/01/24 mcg/actuation nasal #16 mL spray,suspension (Flonase Allergy Relief) prednisone 20 mg tablet 20 mg PO DAILY 5 days #5 tabs 05/01/24 ondansetron 4 mg disintegrating 4 mg PO Q6H PRN nausea and 06/09/24 tablet vomiting #14 tabs Allergies Allergy/AdvReac Type Severity Reaction Status Date / Time Platlets Allergy ALGY-Hives Uncoded 05/01/24 09:53 Review of Systems 2 Const: Denies: fever(s), chills, body aches or change in appetite ENMT: Denies: throat pain or dental pain Card: Denies: chest pain Resp: Denies: dyspnea GI: Reports: abdominal pain, nausea, vomiting and diarrhea : Denies: dysuria Musc: Denies: neck pain or back pain Skin/Breast: Denies: rash Neuro: Denies: headache(s) PFSH ED 2 PFSH: Medical History Hairy cell leukemia Surgical History History of bone marrow biopsy (09/21/21) Status post tympanoplasty (1994) Status post adenoidectomy (1994) Family History Grandmother Cancer Maternal great grandmother - Multiple Mylenoma 2 great aunts with breast cancer great uncle with unknown cancer Hypertension Grandmother Stroke Denies family history of Diabetes CAD (coronary artery disease) Clotting disorder Dementia Hyperlipidemia Psychiatric illness Chronic kidney disease (CKD) Suicide Anesthesia complication Bleeding disorder Lung disease Social History Smoking and tobacco/nicotine status: unknown if used tobacco/nicotine Alcohol intake: never Substance/Drug Use: current Physical Exam 2 Const: COMMON NORMALS: no acute distress, patient oriented x3 and healthy appearing HENMT: COMMON NORMALS: normocephalic and atraumatic HEAD & SCALP: n ormocephalic and atraumatic Eye: COMMON NORMALS: Equal, round and reactive pupils present and EOMs intact bilaterally PUPIL: Yes Equal, round and reactive pupils present Neck/C-Spine: COMMON NORMALS: full ROM and supple Chest: COMMONS NORMALS: normal inspection of the chest and normal palpation of entire chest wall Resp: COMMON NORMALS: normal respiratory effort, No retractions, No use of accessory muscles and clear to auscultation bilaterally AUSCULTATION: clear to auscultation bilaterally Cardio: COMMON NORMALS: regular rate, regular rhythm and No murmurs present (Cardio) RATE: regular rate RHYTHM: regular rhythm GI: COMMON NORMALS: Normal to inspection, nondistended, normoactive bowel sounds present, Soft to palpation, non-tender and no masses PALPATION: Yes Soft to palpation Extremity: COMMON NORMALS: normal to inspection and full ROM Neuro: COMMON NORMALS: patient oriented x3, moves all extremities and no focal motor deficits Psych: COMMON NORMALS: mental status grossly normal, Normal thought process present and cooperative THOUGHT PROCESS: Normal thought process present Skin: COMMON NORMALS: no rashes or lesions noted and no wounds GENERAL SKIN EXAM: no rashes or lesions noted Course 2 Vital Signs: Vital signs: Vital Signs Temperature 97.6 F 06/09/24 14:15 Pulse Rate 87 06/09/24 15:46 Respiratory Rate 16 06/09/24 15:46 Blood Pressure 130/71 06/09/24 15:46 Pulse Oximetry 98 06/09/24 15:46 Oxygen Delivery Me thod Room Air 06/09/24 15:46 MDM - Nausea/Vomiting/Diarrhea Medical Decision Making Patient presents here with vomiting along with diarrhea is likely food poisoning or viral gastritis he feels much improved here after Zofran blood works normal no signs of acute surgical abdomen will prescribe Zofran for home he is follow- up with PCP return if worsening. Medical Records I reviewed the patient's medical records. Lab Data I reviewed the patient's lab results. 06/09/24 15:18 06/09/24 15:18 Laboratory Results WBC 12.70 10^3/uL (3.29-11.43) H 06/09/24 15:18 RBC 5.72 10^6/uL (3.85-5.65) H 06/09/24 15:18 Hgb 16.70 g/dL (11.27-16.99) 06/09/24 15:18 Hct 51.8 % (37-53) 06/09/24 15:18 MCV 90.6 fl (82-101) 06/09/24 15:18 MCH 29.2 pg (27-33) 06/09/24 15:18 MCHC 32.2 g/dL (30-55) 06/09/24 15:18 RDW 12.9 % (12.1-15.1) 06/09/24 15:18 Plt Count 217 10^3/cmm (157-399) 06/09/24 15:18 MPV 10.6 fL (7.4-10.4) H 06/09/24 15:18 Neut % (Auto) 93.7 % 06/09/24 15:18 Lymph % (Auto) 1.7 % 06/09/24 15:18 Ferry % (Auto) 3.9 % 06/09/24 15:18 Eos % (Auto) 0.2 % 06/09/24 15:18 Baso % (Auto) 0.2 % 06/09/24 15:18 Neut # (Auto) 11.89 10^3/uL (1.8-7.7) H 06/09/24 15:18 Lymph # (Auto) 0.2 10^3/uL (0.8-4.8) L 06/09/24 15:18 Ferry # (Auto) 0.5 10^3/uL (0.2-0.9) 06/09/24 15:18 Eos # (Auto) 0.0 10^3/uL (0.0-0.8) 06/09/24 15:18 Baso # (Auto) 0.0 10^3/uL (0.0-0.1) 06/09/24 15:18 Nucleated RBC % (auto) 0 % 06/09/24 15:18 Nucleated RBCs # 0.0 /100WBC 06/09/24 15:18 Sodium 138 mmol/L (136-145) 06/09/24 15:18 Potassium 4.4 mmol/L (3.5-5.1) 06/09/24 15:18 Chloride 100 mmol/L (98-107) 06/09/24 15:18 Carbon Dioxide 23 mmol/L (22-29) 06/09/24 15:18 Anion Gap 19.4 (5-19) H 06/09/24 15:18 BUN 24 mg/dL (6-20) H 06/09/24 15:18 Creatinine 1.0 mg/dL (0.7-1.2) 06/09/24 15:18 GFR Calculation 87.7 mL/min (90-130) L 06/09/24 15:18 Glucose 114 mg/dL (65-115) 06/09/24 15:18 Calculated Osmolality 291 mOsm/kg (285-295) 06/09/24 15:18 Calcium 9.5 mg/dL (8.5-10.5) 06/09/24 15:18 Total Bilirubin 0.6 mg/dL (0.15-1.2) 06/09/24 15:18 AST 31 U/L (0-40) 06/09/24 15:18 ALT 37 U/L (0-41) 06/09/24 15:18 Alkaline Phosphatase 91 U/L (40-130) 06/09/24 15:18 Total Protein 7.5 g/dL (6.6-8.7) 06/09/24 15:18 Albumin 4.7 g/dL (3.5-5.2) 06/09/24 15:18 Globulin 2.8 g/dL (1.3-4.6) 06/09/24 15:18 Lipase 12 U/L (13-60) L 06/09/24 15:18 All radiology interpretation(s) finalized by discharge Discharge Plan Discharge Patient Disposition: Home Clinical Impression: Vomiting Condition: Stable Prescriptions: New ondansetron 4 mg tablet,disintegrating 4 mg PO Q6H PRN (Reason: nausea and vomiting) Qty: 14 0RF No Action multivitamin Tablet 1 tab PO DAILY cholecalciferol (vitamin D3) 125 mcg (5,000 unit) capsule 125 mcg PO DAILY Morophogen Nutrition Fish Oil PO DAILY Joint Support Complex [id number] mg capsule PO DAILY fluticasone propionate [Flonase Allergy Relief] 50 mcg/actuation spray,suspension 2 spray intranasal DAILY 14 Days Qty: 16 0RF Rx Instructions: administer into each nostril prednisone 20 mg tablet 20 mg PO DAILY 5 Days Qty: 5 0RF cetirizine [Zyrtec] 10 mg tablet 10 mg PO DAILY 14 Days Qty: 14 0RF albuterol sulfate 90 mcg/actuation HFA aerosol inhaler 2 puff inhalation Q4H PRN (Reason: shortness of breath or wheezing) Qty: 6.7 0RF Discharge Orders: Discharge ED (Routine); Ordered 06/09/24 Ordered By: Nba Benites Discharge Diet: Advance as tolerated Discharge Activity: Resume usual activity Patient Instructions: Acute Nausea and Vomiting (ED) Coding Level of Care Code ED Manuscript Editor for Micheline Browne
[2024-06-09 15:35] LABS: Basophils % 0.2 %; Eosinophils % 0.2 %; Hematocrit 51.8 % (37-53); Lymphocytes # 0.2 10^3/uL (0.8-4.8); Lymphocytes % 1.7 %; Mean Corpuscular HGB Conc 32.2 g/dL (30-55); Mean Corpuscular Hemoglobin 29.2 pg (27-33); Mean Corpuscular Volume 90.6 fl (82-101); Mean Platelet Volume 10.6 fL (7.4-10.4); Monocytes # 0.5 10^3/uL (0.2-0.9); Monocytes % 3.9 %; Neutrophils # 11.89 10^3/uL (1.8-7.7); Neutrophils % 93.7 %; Nucleated Red Blood Cells % 0 %; Platelet Count 217 10^3/cmm (157-399); Red Blood Count 5.72 10^6/uL (3.85-5.65); Red Cell Distribution Width 12.9 % (12.1-15.1)
[2024-06-09] MEDS: diphenoxylate/atropine Tablet 2 TAB PO (15:42)
[2024-06-09] MEDS: ondansetron 2 mg/ML SDV 2 mL 4 MG IVP (15:43)
[2024-06-09 15:46] VITALS: BP 130/71; PULSE 87; RESP 16; O2SAT 98
[2024-06-09 15:55] LABS: Alanine Aminotransferase 37 U/L (0-41); Albumin Level 4.7 g/dL (3.5-5.2); Alkaline Phosphatase 91 U/L (40-130); Anion Gap 19.4 (5-19); Aspartate Amino Transferase 31 U/L (0-40); Blood Urea Nitrogen 24 mg/dL (6-20); Calcium 9.5 mg/dL (8.5-10.5); Carbon Dioxide 23 mmol/L (22-29); Chloride 100 mmol/L (98-107); Creatinine Clr Calc Pharmacy 119.4747; Globulin 2.8 g/dL (1.3-4.6); Glomerular Filtration Rate 87.7 mL/min (90-130); Glucose 114 mg/dL (65-115); Lipase 12 U/L (13-60); Osmolality Calculated 291 mOsm/kg (285-295); Potassium 4.4 mmol/L (3.5-5.1); Sodium 138 mmol/L (136-145); Total Bilirubin 0.6 mg/dL (0.15-1.2); Total Protein 7.5 g/dL (6.6-8.7)
[2024-06-09 16:18] VITALS: BP 123/71; PULSE 88; RESP 18; O2SAT 97
== END 2024-06-09 16:26 | disposition home or self-care (01) ==
PROVIDERS: Emergency Provider Emergency Medicine
DX: R11.2 Nausea with vomiting, unspecified (principal)
CPT/HCPCS: 80053; 83690; 85025; 96374; 99284; J2405

== ENCOUNTER 2024-06-14 08:03 | Oncology outpatient (recurring) (ONCR) | payer MEDICAID, SELFPAY ==
[2024-06-14 08:41] LABS: Basophils % 0.6 %; Eosinophils # 0.2 10^3/uL (0.0-0.8); Hematocrit 47.3 % (37-53); Lymphocytes # 1.7 10^3/uL (0.8-4.8); Lymphocytes % 26.8 %; Mean Corpuscular Hemoglobin 29.8 pg (27-33); Mean Corpuscular Volume 90.4 fl (82-101); Mean Platelet Volume 10.2 fL (7.4-10.4); Monocytes # 0.6 10^3/uL (0.2-0.9); Monocytes % 9.8 %; Neutrophils # 3.75 10^3/uL (1.8-7.7); Neutrophils % 59.6 %; Nucleated Red Blood Cells % 0 %; Platelet Count 244 10^3/cmm (157-399); Red Blood Count 5.23 10^6/uL (3.85-5.65); Red Cell Distribution Width 12.4 % (12.1-15.1)
[2024-06-14 08:55] LABS: Alanine Aminotransferase 30 U/L (0-41); Albumin Level 4.5 g/dL (3.5-5.2); Alkaline Phosphatase 88 U/L (40-130); Anion Gap 13.5 (5-19); Aspartate Amino Transferase 27 U/L (0-40); Blood Urea Nitrogen 26 mg/dL (6-20); Calcium 9.3 mg/dL (8.5-10.5); Carbon Dioxide 25 mmol/L (22-29); Chloride 101 mmol/L (98-107); Creatinine Clr Calc Pharmacy 120.4103; Glomerular Filtration Rate 87.7 mL/min (90-130); Glucose 106 mg/dL (65-115); Lactate Dehydrogenase 138 U/L (135-225); Osmolality Calculated 285 mOsm/kg (285-295); Potassium 4.5 mmol/L (3.5-5.1); Sodium 135 mmol/L (136-145); Total Bilirubin 0.3 mg/dL (0.15-1.2); Total Protein 7.5 g/dL (6.6-8.7)
== END 2024-06-29 23:59 | disposition home or self-care (01) ==
PROVIDERS: Nurse Practitioner Family; Visit Provider Internal Medicine
DX: C91.40 Hairy cell leukemia not having achieved remission (principal)
CPT/HCPCS: 36415; 80053; 83615; 85025

== ENCOUNTER 2024-07-02 07:13 | Oncology outpatient (recurring) (ONCR) | payer MEDICAID, SELFPAY ==
--- NOTE | 2024-07-02 08:00 | CT_ITS ---
WS: [id number] CT CHEST, ABDOMEN AND PELVIS WITH CONTRAST HISTORY: Surveillance, hairy cell leukemia. TECHNIQUE: Contiguous 5 mm axial imaging performed through the chest, abdomen and pelvis with IV cont rast, oral contrast has been provided. Coronal and sagittal reformats chest. Coronal and sagittal ref ormats through the abdomen and pelvis. All CT scans at [facility] use at least one of these d ose optimization techniques: automated exposure control; mA and/or kV adjustment per patient size (in cludes targeted exams where dose is matched to clinical indication); or iterative reconstruction. CONTRAST: Omnipaque 350; 100 mL IV. DLP: 827.83 mGy.cm COMPARISON: 09/18/[address]: Lungs are well-expanded. No pulmonary nodule, mass or pneumonia. No pericardial or pleural effusions. Heart is normal size. No mediastinal or hilar adenopathy. Normal size aorta.. Mildly promi nent thymic tissue as seen on the prior study. No axillary lymph nodes. Abdomen CT: Spleen is normal size. Massive enlargement noted on the exam from 09/18/2021 has resolved. Spleen now measures 13.6 cm in length with a normal concave hilum. No lesions within the liver or sp candida. Normally distended gallbladder. No pancreatic abnormality or adrenal mass. Kidneys are being pe rfused normally. Normal aorta. No GI obstruction. Mild constipation. No appendicitis. No diverticulitis. Previously described conglomerate adenopathy in the upper abdomen has resolved. There are no suspicio us groups of lymphadenopathy. No retroperitoneal adenopathy. No pelvic or inguinal lymph nodes. Pelvic CT: Normally distended urinary bladder. No ascites or adenopathy. No destructive bone lesions. No rib lesions. CT/CT chest abdpel w/*[id number] IMPRESSION: 1. Massive splenic enlargement as described on 09/18/2021 has resolved. Spleen is normal size at 13.6 cm. 2. No residual adenopathy within the mesentery or retroperitoneum. 3. No ascites. 4. No pulmonary mass or nodule. 5. No renal obstruction.
[2024-07-02] MEDS: iohexol 350 mg/mL 500 mL Btl (per mL) PO (08:52)
[2024-07-02] MEDS: iohexol 350 mg/mL 500 mL Btl (per mL) IV (08:53)
== END 2024-07-27 23:59 | disposition home or self-care (01) ==
PROVIDERS: Visit Provider Nurse Practitioner Family
DX: C91.40 Hairy cell leukemia not having achieved remission (principal)
CPT/HCPCS: 71260; 74177

== ENCOUNTER 2024-12-17 07:58 | Oncology outpatient (recurring) (ONCR) | payer MEDICAID, SELFPAY ==
[2024-12-17 08:19] LABS: Hematocrit 44.5 % (37-53); Hemoglobin 14.50 g/dL (11.27-16.99); Mean Corpuscular HGB Conc 32.6 g/dL (30-55); Mean Corpuscular Hemoglobin 29.4 pg (27-33); Mean Corpuscular Volume 90.1 fl (82-101); Nucleated Red Blood Cells % 0 %; Platelet Count 266 10^3/cmm (157-399); Red Blood Count 4.94 10^6/uL (3.85-5.65); White Blood Count 6.92 10^3/uL (3.29-11.43)
[2024-12-17 08:31] LABS: Alanine Aminotransferase 20 U/L (0-41); Albumin Level 4.3 g/dL (3.5-5.2); Alkaline Phosphatase 83 U/L (40-130); Anion Gap 14.9 (5-19); Aspartate Amino Transferase 19 U/L (0-40); Blood Urea Nitrogen 24 mg/dL (6-20); Calcium 9.0 mg/dL (8.5-10.5); Carbon Dioxide 25 mmol/L (22-29); Chloride 99 mmol/L (98-107); Creatinine Clr Calc Pharmacy 107.8753; Globulin 2.6 g/dL (1.3-4.6); Glucose 103 mg/dL (65-115); Osmolality Calculated 284 mOsm/kg (285-295); Potassium 3.9 mmol/L (3.5-5.1); Sodium 135 mmol/L (136-145); Total Protein 6.9 g/dL (6.6-8.7)
== END 2024-12-27 23:59 | disposition home or self-care (01) ==
PROVIDERS: Visit Provider Nurse Practitioner Family
DX: C91.40 Hairy cell leukemia not having achieved remission (principal)
CPT/HCPCS: 36415; 80053; 85025

== ENCOUNTER 2025-05-09 07:30 | Oncology outpatient (recurring) (ONCR) | payer MEDICAID, SELFPAY ==
[2025-04-30 12:59] LABS: Hematocrit 43.7 % (37-53); Hemoglobin 14.00 g/dL (11.27-16.99); Mean Corpuscular HGB Conc 32.0 g/dL (30-55); Mean Corpuscular Hemoglobin 30.0 pg (27-33); Mean Corpuscular Volume 93.6 fl (82-101); Nucleated Red Blood Cells % 0 %; Platelet Count 242 10^3/cmm (157-399); Red Blood Count 4.67 10^6/uL (3.85-5.65); White Blood Count 6.56 10^3/uL (3.29-11.43)
[2025-04-30 13:14] LABS: Alanine Aminotransferase 126 U/L (0-41); Albumin Level 4.7 g/dL (3.5-5.2); Alkaline Phosphatase 79 U/L (40-130); Anion Gap 14.5 (5-19); Aspartate Amino Transferase 56 U/L (0-40); Blood Urea Nitrogen 26 mg/dL (6-20); Calcium 9.5 mg/dL (8.5-10.5); Carbon Dioxide 28 mmol/L (22-29); Chloride 103 mmol/L (98-107); Globulin 2.8 g/dL (1.3-4.6); Glucose 108 mg/dL (65-115); Osmolality Calculated 297 mOsm/kg (285-295); Potassium 4.5 mmol/L (3.5-5.1); Sodium 141 mmol/L (136-145); Total Protein 7.5 g/dL (6.6-8.7)
[2025-05-09 08:11] LABS: Hematocrit 40.7 % (37-53); Hemoglobin 13.10 g/dL (11.27-16.99); Mean Corpuscular HGB Conc 32.2 g/dL (30-55); Mean Corpuscular Hemoglobin 29.8 pg (27-33); Mean Corpuscular Volume 92.5 fl (82-101); Nucleated Red Blood Cells % 0 %; Platelet Count 287 10^3/cmm (157-399); Red Blood Count 4.40 10^6/uL (3.85-5.65); White Blood Count 5.80 10^3/uL (3.29-11.43)
[2025-05-09 08:32] LABS: Alanine Aminotransferase 54 U/L (0-41); Albumin Level 4.3 g/dL (3.5-5.2); Alkaline Phosphatase 88 U/L (40-130); Anion Gap 15.4 (5-19); Aspartate Amino Transferase 33 U/L (0-40); Blood Urea Nitrogen 30 mg/dL (6-20); Calcium 8.8 mg/dL (8.5-10.5); Carbon Dioxide 25 mmol/L (22-29); Chloride 103 mmol/L (98-107); Creatinine Clr Calc Pharmacy 126.3545; Globulin 2.5 g/dL (1.3-4.6); Glucose 95 mg/dL (65-115); Osmolality Calculated 294 mOsm/kg (285-295); Potassium 4.4 mmol/L (3.5-5.1); Sodium 139 mmol/L (136-145); Total Protein 6.8 g/dL (6.6-8.7)
== END 2025-05-29 23:59 | disposition home or self-care (01) ==
PROVIDERS: Nurse Practitioner Family; Visit Provider Internal Medicine Medical Oncology
DX: C91.40 Hairy cell leukemia not having achieved remission (principal)
CPT/HCPCS: 36415; 80053; 85025